=== PATIENT | male | born 2000 | race African-American/Black ===

== ENCOUNTER 2020-01-16 18:38 | Emergency (ER) | payer OTHER ==
[~2020-01-16] VITALS: Ht 172.7 cm; Wt 68.0 kg
[~2020-01-16 18:38] MED LIST: NOHOMEMEDICATIONS
[2020-01-16 19:34] LABS: ABSOLUTE NEUTROPHILS 4.8 thou/uL (1.4-8.2); BASOPHILS 0.6 % (0.0-2.0); EOSINOPHILS 0.6 % (0.0-3.0); HEMATOCRIT 43.3 % (42.0-52.0); HEMOGLOBIN 14.4 gm/dL (14.0-18.0); LYMPHOCYTES 26.9 % (24.0-44.0); MCH 31.3 pg (26.0-34.0); MCHC 33.4 g/dL (28.0-37.0); MCV 93.8 fL (80.0-100.0); MONOCYTES 5.4 % (1.0-8.0); PLATELET COUNT 180 thou/uL (150-400); POLYS 66.5 % (36.0-66.0); RBC 4.61 mil/uL (4.50-6.00); RDW 13.1 % (10.5-14.5); WBC 7.2 thou/uL (4.0-11.0)
[2020-01-16 19:43] LABS: CALCIUM 8.9 mg/dL (8.5-10.1); CREATININE 1.2 mg/dL (0.7-1.3); POTASSIUM 4.5 mmol/L (3.5-5.1)
[2020-01-16] MEDS ORDERED: ANUSOL-HC25 MG RECTAL (20:02)
[2020-01-16 20:20] VITALS: BP 144/102
== END 2020-01-16 20:20 | disposition home or self-care (01) ==
LOC: ER 18:38
PROVIDERS: Nurse Practitioner Family
DX: R23.4 Changes in skin texture (principal); K59.00 Constipation, unspecified; K62.5 Hemorrhage of anus and rectum